=== PATIENT | female | born 1985 | race Two or more races ===

== ENCOUNTER 2017-04-21 11:15 | Emergency (ER) | payer MEDICAID ==
[~2017-04-21] VITALS: Ht 165.1 cm; Wt 95.0 kg
[~2017-04-21 11:15] MED LIST: OXCA600T32; SERT-132 PO; VENTAER INH
[2017-04-21 11:18] VITALS: BP 153/81; PULSE 74; RESP 15; TEMP 98.3; O2SAT 100
[2017-04-21] MEDS ORDERED: SODIUM CHLORIDE 0.9% FLUSH 5 ML FLUSH IV FLUSH PRN (11:30)
[2017-04-21 11:36] VITALS: O2SAT 100
--- NOTE | 2017-04-21 11:36 | PD ---
HPI Chief Complaint: Neuro Symptoms/ Deficits Time Seen by Provider: 11:22 Travel History International Travel<30 days: No Contact w/Intl Traveler<30days: No Traveled to known affect area: No History of Present Illness HPI Patient is a 32-year-old female with history of HTN, migraine headache and reported possible narcolepsy here for altered mental status. She was sitting in a parking lot outside of work at the [employer] when she was found unresponsive. EMS was called and patient was GCS 3 with reported rapid eye movement and irregular labored breathing. No tremors or shaking seen throughout the extremities. Blood glucose was normal, vital signs unremarkable and in route patient's mental status improved. She is now awake and able to answer yes or no questions but has difficulty speaking, articulating words and cannot move the body entirely. Patient is able to relay that she has a history of similar episodes, happy in approximately 3-4 times per year. This is typical for her. She sees a neurologist. We were able to call her pharmacy and find out that she takes Trileptal and sertraline prescribed by Dr. Lomas of neurology. Per chart review patient has had previous ED visits for syncope with admission for workup and CT/CTA, MRI, EEG that have been unremarkable. No reported history of seizures. PFSH Past Medical History Hx Anticoagulant Therapy: No Asthma: Yes Blood Disorders: No Depression: Yes (SINCE POST 2008) Cancer: No Cardiovascular Problems: Yes (HTN and cholesterol) High Cholesterol: Yes Chemotherapy: No Chest Pain: No Cerebrovascular Accident: No Diabetes: No Diminished Hearing: No Endocrine: No Gastrointestinal Disorders: Yes Genitourinary: Yes (FREQUENT UTI) Headaches: Yes Hypertension: Yes Immune Disorder: No Musculoskeletal: No Neurologic: Yes (HEADACHES) Psychiatric: Yes (hx depression, now controlled w/ meds ) Reproductive: Yes Respiratory: Yes (asthma) Immunizations Current: Yes Migraines: Yes Radiation Therapy: No Seizures: Yes ?: Not : 2 Para: 2 Ovarian Cysts: Yes Past Surgical History Abdominal Surgery: Yes (C SECTION 01/16) Cardiac Surgery: No Section: Yes (X 2) Ear Surgery: No Endocrine Surgery: No Eye Surgery: No Genitourinary Surgery: No Gynecologic Surgery: Yes (ENDOMETRIOSIS REMOVED 11/2009) Oral Surgery: Yes (TEETH EXTRACTED) Other Surgery: Yes ( C SECTION 01/16) Social History Alcohol Use: No Tobacco Use: No Substance Use: No Allergies-Medications (Allergen,Severity, Reaction): Coded Allergies: Clindamycin (Verified Allergy, Severe, Anaphylaxis, 04/21/17) Doxycycline (Verified Allergy, Severe, Anaphylaxis, 04/21/17) Levaquin (Verified Allergy, Severe, ORBITAL SWELLING, GENERAL ITCHING, FACIAL REDNESS., 04/21/17) Macrobid (Verified Allergy, Severe, Anaphylaxis, 04/21/17) Reported Meds & Prescriptions Reported Meds & Active Scripts Active Sertraline (Sertraline HCl) 50 Mg Tab 50 Mg PO DAILY Reported Oxtellar Xr (Oxcarbazepine) 600 Mg Tab DAILY Ventolin Hfa 18 GM Inh (Albuterol Sulfate) 90 Mcg/Act Aer 1 Puff INH Q4H PRN Review of Systems Except as stated in HPI: all other systems reviewed are Neg Physical Exam Narrative GENERAL: Well-appearing female in no acute distress SKIN: Focused skin assessment warm/dry. HEAD: Atraumatic. Normocephalic. EYES: Pupils equal and round. 3 mm. No afferent pupillary defect. No scleral icterus. No injection or drainage. ENT: No nasal bleeding or discharge. Mucous membranes pink and moist. NECK: Supple CARDIOVASCULAR: Regular rate and rhythm. No murmur appreciated. RESPIRATORY: No accessory muscle use. Clear to auscultation. Breath sounds equal bilaterally. GASTROINTESTINAL: Abdomen soft, non-tender, nondistended. MUSCULOSKELETAL: No obvious deformities. No edema. NEUROLOGICAL: Awake and alert. Answers basic yes or no questions but is unable to speak, speech is somewhat garbled/stuttering. No obvious cranial nerve deficits. Patient is unable to move the extremities. PSYCHIATRIC: Slightly anxious Data Data Last Documented VS Vital Signs Date Time Temp Pulse Resp B/P Pulse Ox O2 Delivery O2 Flow Rate FiO2 04/21/17 11:36 100 04/21/17 11:18 98.3 74 15 153/81 Orders Electrocardiogram (04/21/17 11:22) Basic Metabolic Panel (Bmp) (04/21/17 11:22) Complete Blood Count With Diff (04/21/17 11:22) Creatine Kinase (Cpk) (04/21/17 11:22) Ct Brain W/O Iv Contrast(Rout) (04/21/17 11:22) Ecg Monitoring (04/21/17 11:22) Iv Access Insert/Monitor (04/21/17 11:22) Oximetry (04/21/17 11:22) Sodium Chloride 0.9% Flush (Ns Flush) (04/21/17 11:30) Lorazepam Inj (Ativan Inj) (04/21/17 11:45) Labs Laboratory Tests Test 04/21/17 11:25 White Blood Count 10.8 TH/MM3 Red Blood Count 4.45 MIL/MM3 Hemoglobin 11.4 GM/DL Hematocrit 34.6 % Mean Corpuscular Volume 77.9 FL Mean Corpuscular Hemoglobin 25.7 PG Mean Corpuscular Hemoglobin 33.0 % Concent Red Cell Distribution Width 15.7 % Platelet Count 337 TH/MM3 Mean Platelet Volume 9.2 FL Neutrophils (%) (Auto) 59.1 % Lymphocytes (%) (Auto) 33.0 % Monocytes (%) (Auto) 4.0 % Eosinophils (%) (Auto) 2.4 % Basophils (%) (Auto) 1.5 % Neutrophils # (Auto) 6.3 TH/MM3 Lymphocytes # (Auto) 3.6 TH/MM3 Monocytes # (Auto) 0.4 TH/MM3 Eosinophils # (Auto) 0.3 TH/MM3 Basophils # (Auto) 0.2 TH/MM3 CBC Comment DIFF FINAL Differential Comment Sodium Level 139 MEQ/L Potassium Level 3.9 MEQ/L Chloride Level 107 MEQ/L Carbon Dioxide Level 22.1 MEQ/L Anion Gap 10 MEQ/L Blood Urea Nitrogen 14 MG/DL Creatinine 0.72 MG/DL Estimat Glomerular Filtration 93 ML/MIN Rate Random Glucose 93 MG/DL Calcium Level 8.8 MG/DL Total Creatine Kinase 75 U/L MDM Medical Decision Making Medical Screen Exam Complete: Yes Emergency Medical Condition: Yes Medical Record Reviewed: Yes Differential Diagnosis 32-year-old female with history of HTN, migraine headache and possible narcolepsy versus cataplexy here with altered mental status. Differential includes seizure, syncope, dehydration, electrolyte abnormality, arrhythmia, pseudoseizure, psychosocial stressors, cataplexy, narcolepsy. Narrative Course Patient placed on monitor, IV established and blood obtained. A twelve-lead EKG shows sinus rhythm without notable ST or T-wave abnormalities and normal intervals. [id number] arrives and states that patient has a history of "cataplexy" and sees Dr. Lomsa. She typically only has episodes like this when she is under significant psychosocial stressors. Apparently patient's mother is admitted for TIA versus CVA and patient has been appropriately worried about her mother. While in the emergency Department patient had a second spell where she became unresponsive and has rapid eye movement and fluttering. There is no eye deviation. Again thereafter she is aphasic with garbled speech and feels paralyzed unable to move the extremities. This gradually does improve with time. CBC, BMP, CPK and CT of the brain were unremarkable. I spoke with Dr. Lomas, who agrees that she has had workup for this in the past and that this is consistent with cataplexy and does not warrant any further workup in the emergency department and is okay with disposition to home as long as patient's mental status and exam normalized. Diagnosis Primary Impression: Cataplexy Referrals: Neurologist call for appointment Additional Instructions: Continue home medications. Call Dr. Lomas for outpatient follow-up. Med/Other Pt SpecificInfo: No Change to Meds Disposition: 01 DISCHARGE HOME Condition: Stable Kaley Landry MD Apr 21, 2017 11:36
[2017-04-21 11:40] LABS: AUTOMATED NEUTROPHIL # 6.3 TH/MM3 (1.8-7.7); BASOPHIL # 0.2 TH/MM3 (0-0.2); BASOPHIL % 1.5 % (0.0-2.0); EOSINOPHIL # 0.3 TH/MM3 (0-0.4); EOSINOPHIL % 2.4 % (0.0-4.0); HEMATOCRIT 34.6 % (35.0-46.0); HEMO FLAGS DIFF FINAL; LYMPHOCYTE # 3.6 TH/MM3 (1.0-4.8); MEAN CELL VOLUME 77.9 FL (80.0-100.0); MEAN CORPUSCULAR HEMOGLOBIN 25.7 PG (27.0-34.0); NEUT % 59.1 % (16.0-70.0); PLATELET COUNT 337 TH/MM3 (150-450); RED BLOOD COUNT 4.45 MIL/MM3 (4.00-5.30); RED CELL DISTRIBUTION WIDTH 15.7 % (11.6-17.2); WHITE BLOOD COUNT 10.8 TH/MM3 (4.0-11.0)
[2017-04-21 11:43] LABS: POTASSIUM 3.9 MEQ/L (3.5-5.1)
[2017-04-21] MEDS ORDERED: LORazepam 2 MG/ML VIAL IV PUSH ONE (11:45)
[2017-04-21 11:46] LABS: BICARBONATE 22.1 MEQ/L (21.0-32.0)
--- NOTE | 2017-04-21 12:18 | RADHPO ---
EXAM DATE/TIME: 04/21/2017 11:59 [facility] COMPARISON: CT FOOT RIGHT W CONTRAST, February 23, 2016, 15:51. INDICATIONS : Episode of altered mental status. Syncope. RADIATION DOSE: 63.52 CTDIvol (mGy) MEDICAL HISTORY : Hypertension. SURGICAL HISTORY : section. ENCOUNTER: Initial ACUITY: 1 day PAIN SCALE: 0/10 LOCATION: cranial TECHNIQUE: Multiple contiguous axial images were obtained of the head. Using automated exposure control and adj ustment of the mA and/or kV according to patient size, radiation dose was kept as low as reasonably a chievable to obtain optimal diagnostic quality images. FINDINGS: CEREBRUM: The ventricles are normal for age. No evidence of midline shift, mass lesion, hemorrhage or acute in farction. No extra-axial fluid collections are seen. POSTERIOR FOSSA: The cerebellum and brainstem are intact. The 4th ventricle is midline. The cerebellopontine angle i s unremarkable. EXTRACRANIAL: The visualized portion of the orbits is intact. SKULL: The calvaria is intact. No evidence of skull fracture. CONCLUSION: 1. No acute intercranial abnormality identified. Sameer Cobb MD on April 21, 2017 at 12:15 Board Certified Radiologist. This report was verified electronically.
[2017-04-21 12:47] VITALS: BP 149/76
--- NOTE | 2017-04-21 13:38 | EKG ---
Date Performed: 04/21/2017 Time Performed: 11:17:35 PTAGE: 32 years EKG: Sinus rhythm NORMAL ECG INTERPRETATION BASED ON A DEFAULT AGE OF 38 YEARS NO PREVIOUS TRACING DOCTOR: Gibson Domingo Interpretating Date/Time 04/21/2017 13:37:15
== END 2017-04-21 12:53 | disposition home or self-care (01) ==
LOC: PHED 11:15
DX: G47.411 Narcolepsy with cataplexy (principal); I10 Essential (primary) hypertension; J45.909 Unspecified asthma, uncomplicated; E78.00 Pure hypercholesterolemia, unspecified
CPT/HCPCS: 70450; 80048; 82550; 85025; 93005; 96374; 99285; J2060

== ENCOUNTER 2017-04-26 16:10 | Emergency (ER) | payer MEDICAID ==
[~2017-04-26] VITALS: Ht 167.6 cm; Wt 96.0 kg
[2017-04-26 16:16] VITALS: BP 133/85; PULSE 77; RESP 16; TEMP 98.6; O2SAT 98
[2017-04-26 16:49] VITALS: BP_SYST 146; BP_DIAS 73; BP_DIAS 87; RESP 16
--- NOTE | 2017-04-26 16:50 | PD ---
HPI Chief Complaint: Headache Time Seen by Provider: 16:21 Travel History International Travel<30 days: No Contact w/Intl Traveler<30days: No Traveled to known affect area: No History of Present Illness HPI PATIENT WAS JUST HERE ON APRIL 21 HAD AN EXTENSIVE WORKUP INCLUDING LABS AND CT HEAD ALL OF WHICH WAS UNREMARKABLE. TODAY PATIENT RETURNS WITH SLIGHT HEADACHE AND EPISODES OF HER CATAPLEXY. SHE HAS CONTACTED HER NEUROLOGIST FOR FURTHER CARE. PATIENT WAS ASKED WHAT SHE WOULD LIKE TO HAVE DONE TODAY BECAUSE HER WORKUP HAS INCLUDED MRI , EEG AND NEUROLOGIST EVALUATION...PT HONESTLY SAID "I DON'T KNOW, I JUST WISH I COULD BE CURED". PATIENT DENIES VISUAL CHANGES, DENIES N/V/FEVER EITHER PFSH Past Medical History Hx Anticoagulant Therapy: No Asthma: Yes Blood Disorders: No Depression: Yes (SINCE POST 2008) Cancer: No Cardiovascular Problems: Yes (HTN and cholesterol) High Cholesterol: Yes Chemotherapy: No Chest Pain: No Cerebrovascular Accident: No Diabetes: No Diminished Hearing: No Endocrine: No Gastrointestinal Disorders: Yes Genitourinary: Yes (FREQUENT UTI) Headaches: Yes Hypertension: Yes Immune Disorder: No Implanted Vascular Access Dvce: No Musculoskeletal: No Neurologic: Yes (CATAPLEXIA) Psychiatric: Yes (hx depression, now controlled w/ meds ) Reproductive: Yes Respiratory: Yes (asthma) Immunizations Current: Yes Migraines: Yes Radiation Therapy: No Seizures: Yes Influenza Vaccination: No ?: Not LMP: 03/24/17 : 2 Para: 2 Ovarian Cysts: Yes Tubal Ligation: Yes Past Surgical History Abdominal Surgery: Yes (C SECTION 01/16) Cardiac Surgery: No Section: Yes (X 2) Ear Surgery: No Endocrine Surgery: No Eye Surgery: No Genitourinary Surgery: No Gynecologic Surgery: Yes (ENDOMETRIOSIS REMOVED 11/2009) Neurologic Surgery: No Oral Surgery: Yes (TEETH EXTRACTED) Other Surgery: Yes ( C SECTION 01/16) Social History Alcohol Use: No Tobacco Use: No Substance Use: No Allergies-Medications (Allergen,Severity, Reaction): Coded Allergies: Clindamycin (Verified Allergy, Severe, Anaphylaxis, 04/21/17) Doxycycline (Verified Allergy, Severe, Anaphylaxis, 04/21/17) Levaquin (Verified Allergy, Severe, ORBITAL SWELLING, GENERAL ITCHING, FACIAL REDNESS., 04/21/17) Macrobid (Verified Allergy, Severe, Anaphylaxis, 04/21/17) Reported Meds & Prescriptions Reported Meds & Active Scripts Active Sertraline (Sertraline HCl) 50 Mg Tab 50 Mg PO DAILY Reported Oxtellar Xr (Oxcarbazepine) 600 Mg Tab DAILY Ventolin Hfa 18 GM Inh (Albuterol Sulfate) 90 Mcg/Act Aer 1 Puff INH Q4H PRN Review of Systems Except as stated in HPI: all other systems reviewed are Neg Physical Exam Narrative GENERAL: SKIN: Warm and dry. HEAD: Atraumatic. Normocephalic. EYES: Pupils equal and round. No scleral icterus. No injection or drainage. ENT: No nasal bleeding or discharge. Mucous membranes pink and moist. NECK: Trachea midline. No JVD. CARDIOVASCULAR: Regular rate and rhythm. RESPIRATORY: No accessory muscle use. Clear to auscultation. Breath sounds equal bilaterally. GASTROINTESTINAL: Abdomen soft, non-tender, nondistended. Hepatic and splenic margins not palpable. MUSCULOSKELETAL: Extremities without clubbing, cyanosis, or edema. No obvious deformities. NEUROLOGICAL: Awake and alert. No obvious cranial nerve deficits. Motor grossly within normal limits. Five out of 5 muscle strength in the arms and legs. Normal speech. PSYCHIATRIC: Appropriate mood and affect; insight and judgment normal. Data Data Last Documented VS Vital Signs Date Time Temp Pulse Resp B/P Pulse Ox O2 Delivery O2 Flow Rate FiO2 04/26/17 16:16 98.6 77 16 133/85 98 Room Air Orders Blood Glucose (04/26/17 16:42) Orthostatic Vital Signs (04/26/17 16:42) MDM Medical Decision Making Medical Screen Exam Complete: Yes Emergency Medical Condition: Yes Medical Record Reviewed: Yes Differential Diagnosis CATAPLEXY V MALINGERING Narrative Course PATIENT IS HEMODYNAMICALLY STABLE, ACCUCHECK WNL, ORTHOSTATIC NEGATIVE, WILL D/ C HOME Diagnosis Primary Impression: Cataplexy Disposition: 01 DISCHARGE HOME Condition: Stable Johnny Leija MD Apr 26, 2017 16:50
[2017-04-26 17:13] VITALS: BP 142/74; PULSE 80; RESP 16; O2SAT 100
== END 2017-04-26 17:30 | disposition home or self-care (01) ==
LOC: PHED 16:10
DX: G47.411 Narcolepsy with cataplexy (principal); I10 Essential (primary) hypertension; E78.00 Pure hypercholesterolemia, unspecified
CPT/HCPCS: 99282

== ENCOUNTER 2018-11-11 13:13 | Inpatient (IN) ==
[2018-11-11 20:05] LABS: Baso # (Auto) 0.1 th/mm3 (0.0-0.2); Baso % (Auto) 0.9 % (0.0-2.0); Eos # (Auto) 0.2 th/mm3 (0.0-0.4); Eos % (Auto) 1.4 % (0.0-4.0); Hematocrit 37.6 % (35.0-46.0); Hemoglobin 12.2 gm/dL (11.6-15.3); Lymph # (Auto) 2.9 th/mm3 (1.0-4.8); Mean Corpuscular HGB Conc 32.6 % (32.0-36.0); Mean Corpuscular Volume 79.8 fL (80.0-100.0); Mean Platelet Volume 8.2 fL (7.0-11.0); Mono # (Auto) 0.3 th/mm3 (0.0-0.9); Mono % (Auto) 2.8 % (0.0-8.0); Neut # (Auto) 8.5 th/mm3 (1.8-7.7); Neut % (Auto) 70.9 % (16.0-70.0); Platelet Count 400 th/mm3 (150-450); Red Blood Count 4.71 mil/mm3 (4.00-5.30); Red Cell Distribution Width 15.4 % (11.6-17.2)
[2018-11-11 20:11] LABS: Bacteria,Urine Rare /hpf; Bilirubin,Urine Negative (Negative); Calcium Oxalate Crystals,Urine Occasional /hpf; Clarity,Urine Clear (Clear); Color,Urine Yellow (Yellw/Straw); Glucose,Urine (UA) Negative (Negative); Leukocyte Esterase,Urine Negative (Negative); Mucus,Urine Few /lpf (Occasional); Nitrite,Urine Negative (Negative); Squamous Epithelial Cell,Urine 1 /hpf (0-5)
[2018-11-11 20:14] LABS: Amphetamine Screen,Urine Neg (Neg); Barbiturate Screen,Urine Neg (Neg); Cannabinoid Screen,Urine Neg (Neg); Cocaine Screen,Urine Neg (Neg)
[2018-11-11 20:31] LABS: Opiate Screen,Urine Neg (Neg)
[2018-11-11 20:32] LABS: Albumin 3.6 g/dL (3.4-5.0); Anion Gap 9 meq/L (5-15); Aspartate Aminotransferase 9 U/L (15-37); Blood Urea Nitrogen 13 mg/dL (7-18); Calcium 8.8 mg/dL (8.5-10.1); Carbon Dioxide 22.4 meq/L (21.0-32.0); Chloride 106 meq/L (98-107); Glomerular Filtration Rate 80 mL/min (>89); Glucose,Random 141 mg/dL (74-106); Magnesium 1.9 mg/dL (1.5-2.5); Potassium 3.5 meq/L (3.5-5.1); Sodium 137 meq/L (136-145)
--- NOTE | 2018-11-11 20:33 | ED ---
HPI General Chief Complaint: Psychiatric Symptoms Stated Complaint: psych eval Time Seen by Provider: 11/11/18 19:20 Source: patient Mode of arrival: ambulatory Limitations: no limitations History of Present Illness HPI Narrative: This is a 33-year-old white female who presents emergency department on a voluntary basis requesting evaluation of depression. She states that she has been increasingly depressed over the past month. She has thought about suicide but has no current plan. She denies any homicidal ideation. She states that she has been unemployed now for approximately 6 months. She is having financial problems at home. She has been having medical issues with cataplexy. She states that she has been under the care of a neurologist who has not been able to help her at this time. She allegedly has been referred to a specialist on the of this month. She denies any acute medical problems at this time. She states that she has been taking her medications. She denies any drugs or alcohol. Past medical history: Cataplexy Surgical history: Denies Social history: Denies alcohol and tobacco. No drugs. Related Data Home Medications Medication Instructions Recorded Confirmed clonazepam 1 mg PO HS 11/11/18 11/11/18 ferrous gluconate 270 mg PO DAILY 11/11/18 11/11/18 methocarbamol 500 mg PO TID PRN 11/11/18 11/11/18 norgestrel-ethinyl estradiol 1 tab PO DAILY 11/11/18 11/11/18 [Low-Ogestrel (28)] oxcarbazepine [Oxtellar XR] 1,200 mg PO DAILY 11/11/18 11/11/18 Allergies Allergy/AdvReac Type Severity Reaction Status Date / Time clindamycin Allergy Severe Anaphylaxis Unverified 11/11/18 13:24 doxycycline Allergy Severe Anaphylaxis Unverified 11/11/18 13:24 levofloxacin Allergy Severe ORBITAL Unverified 11/11/18 13:24 SWELLING, GENERAL ITCHING, FACIAL REDNESS. nitrofurantoin Allergy Severe Anaphylaxis Unverified 11/11/18 13:24 Review of Systems ROS: all other systems reviewed are negative [facility] Medical History Medical History Depression (Acute) Social History Social History Recent Travel in [facility] within the Last 8 Weeks: No Recent Out of Country Travel within the Last 8 Weeks: No Exam Narrative Exam Narrative: GENERAL: Well-nourished, well-developed patient. SKIN: Warm and dry. HEAD: Normocephalic and atraumatic. EYES: No scleral icterus. No injection or drainage. ENT: No nasal drainage noted. Mucous membranes pink. Airway patent. NECK: Supple, trachea midline. Moves head freely without obvious discomfort. CARDIOVASCULAR: Regular rate and rhythm without murmurs, gallops, or rubs. RESPIRATORY: Breath sounds equal bilaterally. No accessory muscle use. GASTROINTESTINAL: Abdomen soft, non-tender, nondistended. EXTREMITIES: No cyanosis or edema. BACK: Nontender without obvious deformity. No CVA tenderness. NEURO: Patient is alert and oriented. no sensorimotor deficits. Nonfocal. Normal speech. PSYCH: No delusions. No auditory or visual hallucinations. Course Initial Documented Vital Signs Temperature 99.3 F 11/11/18 13:21 Pulse Rate 99 H 11/11/18 13:21 Respiratory Rate 18 11/11/18 13:21 Blood Pressure 119/119 H 11/11/18 13:21 Pulse Oximetry 98 11/11/18 13:21 Last Documented Vital Signs Temperature 99.3 F 11/11/18 19:28 Pulse Rate 104 H 11/11/18 19:28 Respiratory Rate 15 11/11/18 19:28 Blood Pressure 140/88 11/11/18 19:28 Pulse Oximetry 99 11/11/18 19:28 Medical Decision Making MDM Narrative Medical decision making narrative: We will perform routine laboratory testing for medical clearance Medical Screen Exam Complete: Yes Emergency Medical Condition: Yes Differential Diagnosis Differential Diagnosis: MDM: High Differential diagnoses: Schizophrenia, schizoaffective disorder, bipolar, anxiety, depression, adjustment reaction, mood disorder NOS, ODD, depressive disorder NOS, substance induced mood disorder, infection,electrolyte abnormality, malingering. Mental health screening discussed with the patient. Psychiatric screen ordered. Lab Data Result diagrams: 11/11/18 19:45 11/11/18 19:45 POC Results POC Urine Results Negative Lab Results 11/11/18 11/11/18 11/11/18 Range/Units 19:40 19:40 19:45 WBC 12.0 H (4.0-11.0) th/mm3 RBC 4.71 (4.00-5.30) mil/mm3 Hgb 12.2 (11.6-15.3) gm/dL Hct 37.6 (35.0-46.0) % MCV 79.8 L (80.0-100.0) fL MCH 26.0 L (27.0-34.0) pg MCHC 32.6 (32.0-36.0) % RDW 15.4 (11.6-17.2) % Plt Count 400 (150-450) th/mm3 MPV 8.2 (7.0-11.0) fL Neut % (Auto) 70.9 H (16.0-70.0) % Lymph % (Auto) 24.0 (9.0-44.0) % [place] % (Auto) 2.8 (0.0-8.0) % Eos % (Auto) 1.4 (0.0-4.0) % Baso % (Auto) 0.9 (0.0-2.0) % Neut # (Auto) 8.5 H (1.8-7.7) th/mm3 Lymph # (Auto) 2.9 (1.0-4.8) th/mm3 [place] # (Auto) 0.3 (0.0-0.9) th/mm3 Eos # (Auto) 0.2 (0.0-0.4) th/mm3 Baso # (Auto) 0.1 (0.0-0.2) th/mm3 WBC Differential . Differential Comment Auto diff final Sodium (136-145) meq/L Potassium (3.5-5.1) meq/L Chloride (98-107) meq/L Carbon Dioxide (21.0-32.0) meq/L Anion Gap (5-15) meq/L BUN (7-18) mg/dL Creatinine (0.50-1.00) mg/dL Estimated GFR (>89) mL/min Random Glucose (74-106) mg/dL Calcium (8.5-10.1) mg/dL Magnesium (1.5-2.5) mg/dL Total Bilirubin (0.2-1.0) mg/dL AST (15-37) U/L ALT (10-53) U/L Alkaline Phosphatase (45-117) U/L Total Protein (6.4-8.2) g/dL Albumin (3.4-5.0) g/dL TSH (0.358-3.740) uIU/mL Urine Color Yellow (Yellw/Straw) Urine Clarity Clear (Clear) Urine pH 6.0 (5.0-8.5) Ur Specific [place] 1.020 (1.002-1.035) Urine Protein 30 H (Neg-Trace) mg/dL Urine Glucose (UA) Negative (Negative) mg/dL Urine Ketones Negative (Negative) mg/dL Urine Occult Blood Negative (Negative) Urine Nitrate Negative (Negative) Urine Bilirubin Negative (Negative) Urine Urobilinogen Less than 2 (Less than 2) mg/dL Ur Leukocyte Esterase Negative (Negative) Urine RBC 3 (0-3) /hpf Urine WBC 5 (0-5) /hpf Ur Squamous Epith Cells 1 (0-5) /hpf Calcium Oxalate Crystal Occasional H (None) /hpf Urine Bacteria Rare H (None) /hpf Urine Mucus Few H (Occasional) /lpf Micro UA Comment Culture not ind Ur Microscopic Review Not Reportable Urine Culture Comments Culture not ind Urine Opiates Screen Neg (Neg) Ur Barbiturates Screen Neg (Neg) Ur Amphetamines Screen Neg (Neg) U Benzodiazepines Scrn Neg (Neg) Urine Cocaine Screen Neg (Neg) U Cannabinoids Screen Neg (Neg) Serum Alcohol (0-5) mg/dL 11/11/18 Range/Units 19:45 WBC (4.0-11.0) th/mm3 RBC (4.00-5.30) mil/mm3 Hgb (11.6-15.3) gm/dL Hct (35.0-46.0) % MCV (80.0-100.0) fL MCH (27.0-34.0) pg MCHC (32.0-36.0) % RDW (11.6-17.2) % Plt Count (150-450) th/mm3 MPV (7.0-11.0) fL Neut % (Auto) (16.0-70.0) % Lymph % (Auto) (9.0-44.0) % [place] % (Auto) (0.0-8.0) % Eos % (Auto) (0.0-4.0) % Baso % (Auto) (0.0-2.0) % Neut # (Auto) (1.8-7.7) th/mm3 Lymph # (Auto) (1.0-4.8) th/mm3 [place] # (Auto) (0.0-0.9) th/mm3 Eos # (Auto) (0.0-0.4) th/mm3 Baso # (Auto) (0.0-0.2) th/mm3 WBC Differential Differential Comment Sodium 137 (136-145) meq/L Potassium 3.5 (3.5-5.1) meq/L Chloride 106 (98-107) meq/L Carbon Dioxide 22.4 (21.0-32.0) meq/L Anion Gap 9 (5-15) meq/L BUN 13 (7-18) mg/dL Creatinine 0.81 (0.50-1.00) mg/dL Estimated GFR 80 L (>89) mL/min Random Glucose 141 H (74-106) mg/dL Calcium 8.8 (8.5-10.1) mg/dL Magnesium 1.9 (1.5-2.5) mg/dL Total Bilirubin 0.1 L (0.2-1.0) mg/dL AST 9 L (15-37) U/L ALT 18 (10-53) U/L Alkaline Phosphatase 97 (45-117) U/L Total Protein 8.2 (6.4-8.2) g/dL Albumin 3.6 (3.4-5.0) g/dL TSH 2.120 (0.358-3.740) uIU/mL Urine Color (Yellw/Straw) Urine Clarity (Clear) Urine pH (5.0-8.5) Ur Specific [place] (1.002-1.035) Urine Protein (Neg-Trace) mg/dL Urine Glucose (UA) (Negative) mg/dL Urine Ketones (Negative) mg/dL Urine Occult Blood (Negative) Urine Nitrate (Negative) Urine Bilirubin (Negative) Urine Urobilinogen (Less than 2) mg/dL Ur Leukocyte Esterase (Negative) Urine RBC (0-3) /hpf Urine WBC (0-5) /hpf Ur Squamous Epith Cells (0-5) /hpf Calcium Oxalate Crystal (None) /hpf Urine Bacteria (None) /hpf Urine Mucus (Occasional) /lpf Micro UA Comment Ur Microscopic Review Urine Culture Comments Urine Opiates Screen (Neg) Ur Barbiturates Screen (Neg) Ur Amphetamines Screen (Neg) U Benzodiazepines Scrn (Neg) Urine Cocaine Screen (Neg) U Cannabinoids Screen (Neg) Serum Alcohol Less than 3 (0-5) mg/dL Discharge Plan Discharge Disposition Patient Disposition: Sign Out(ED Internal Use Only) Discharge Condition Condition: Stable Discharge Details Anticipated Discharge Date: 11/12/18 Physicians Team ED Provider: Jose Raul Bo ED Midlevel Provider: Pérez Serrano Primary Care Provider: Radhika Arenas Rxs /Orders / Referrals /Forms Prescriptions: No Action norgestrel-ethinyl estradiol [Low-Ogestrel (28)] 0.3-30 mg-mcg Tablet 1 tab PO DAILY RF: 0 methocarbamol 500 mg Tablet 500 mg PO TID PRN (Reason: Pain) RF: 0 oxcarbazepine [Oxtellar XR] 600 mg Tablet Extended Release 24 Hr 1,200 mg PO DAILY RF: 0 ferrous gluconate 270 mg (27 mg iron) Tablet 270 mg PO DAILY RF: 0 clonazepam 1 mg Tablet 1 mg PO HS RF: 0 Discharge Interventions Interventions: Vital Signs Last Done: 11/11/18 19:28 Status ED Status: Medically Cleared
[2018-11-11 20:34] LABS: Alanine Aminotransferase 18 U/L (10-53)
[2018-11-11 20:43] LABS: Alkaline Phosphatase 97 U/L (45-117); Total Protein 8.2 g/dL (6.4-8.2)
[2018-11-11] MEDS ORDERED: Aluminum/Magnesium/Simethacone Susp 30 ML UDC PO PRN ×2 (21:33→23:52)
[2018-11-11] MEDS ORDERED: Acetaminophen 325 MG Tablet PO PRN (21:33)
[2018-11-11] MEDS: LORazepam 1 MG Tablet PO PRN (22:51)
[2018-11-11] MEDS ORDERED: LORazepam 0.5 MG Tablet PO PRN (23:52)
[2018-11-11] MEDS ORDERED: LORazepam 1 MG Tablet PO PRN (23:52)
[2018-11-12 07:38] LABS: Calcium 8.2 mg/dL (8.5-10.1); Carbon Dioxide 24.5 meq/L (21.0-32.0); Potassium 3.6 meq/L (3.5-5.1)
[2018-11-12 07:49] LABS: Chol/HDL Ratio 4.2 Ratio; Free T4 (Free Thyroxine) 0.8 ng/dL (0.76-1.46); HDL Cholesterol 50.2 mg/dL (40.0-60.0); Thyroid Stimulating Hormone 2.91 uIU/mL (0.358-3.740)
[2018-11-12] MEDS ORDERED: FERROUS GLUCONATE 270 MG PO SCH (09:00)
[2018-11-12] MEDS: Ferrous Sulfate 325 MG Tablet PO SCH (09:08)
[2018-11-12] MEDS: OXcarbazepine 600 MG Tablet PO SCH ×2 (09:08→20:54)
[2018-11-12] MEDS: Methocarbamol 500 MG Tablet PO SCH ×4 (09:08→18:16)
[2018-11-12 09:17] LABS: Hemoglobin A1c 5.9 % (4.3-6.0)
--- NOTE | 2018-11-12 12:41 | CT ---
EXAM DATE: 11/12/2018 12:32 PM EST AGE/SEX: 33 years / Female INDICATIONS: Stroke alert, altered mental status. CLINICAL DATA: This is the patient's initial encounter. Patient reports that signs and symptoms have been present for 1 day and indicates a pain score of Nonresponsive. MEDICAL/SURGICAL HISTORY: Non-responsive. Non-responsive. RADIATION DOSE: 43.25 CTDI (mGy) COMPARISON: [facility], CT BRAIN W/O CONTRAST, 04/21/2017. . TECHNIQUE: CT of the head without contrast. Using automated exposure control and adjustment of the mA and/or kV according to patient size, radiation dose was kept as low as reasonably achievable to ob tain optimal diagnostic quality images. DICOM format image data is available electronically for revi ew and comparison. FINDINGS: Cerebrum: The ventricles are normal for age. No evidence of midline shift, mass lesion, hemorrhage or acute infarction. No extraaxial fluid collections are seen. Posterior Fossa: The cerebellum and brainstem are intact. The 4th ventricle is midline. The cerebe llopontine angle is unremarkable. Extracranial: The visualized portion of the orbits is intact. Skull: The calvaria is intact. No evidence of skull fracture. CONCLUSION: 1. No acute intracranial abnormality identified. Report was called by [ Dr. Suárez] at 12:38 PM. Electronically signed by: Sameer Cobb MD Board Certified Radiologist 11/12/2018 12:39 PM EST
[2018-11-12 12:45] LABS: Baso # (Auto) 0.1 th/mm3 (0.0-0.2); Baso % (Auto) 0.6 % (0.0-2.0); Eos # (Auto) 0.1 th/mm3 (0.0-0.4); Eos % (Auto) 1.3 % (0.0-4.0); Hematocrit 36.6 % (35.0-46.0); Lymph # (Auto) 2.2 th/mm3 (1.0-4.8); Lymph % (Auto) 23.4 % (9.0-44.0); Mean Corpuscular HGB Conc 32.7 % (32.0-36.0); Mean Corpuscular Hemoglobin 26.4 pg (27.0-34.0); Mean Corpuscular Volume 80.8 fL (80.0-100.0); Mean Platelet Volume 8.2 fL (7.0-11.0); Mono # (Auto) 0.2 th/mm3 (0.0-0.9); Mono % (Auto) 2.2 % (0.0-8.0); Neut # (Auto) 6.8 th/mm3 (1.8-7.7); Neut % (Auto) 72.5 % (16.0-70.0); Platelet Count 366 th/mm3 (150-450); Red Blood Count 4.53 mil/mm3 (4.00-5.30); Red Cell Distribution Width 15.7 % (11.6-17.2); White Blood Count 9.4 th/mm3 (4.0-11.0)
[2018-11-12 12:59] LABS: Activated Partial Thrombo Time 33.1 sec (23.4-31.7); Prothrombin Time 10.1 sec (9.8-11.6)
[2018-11-12 13:10] LABS: Creatine Kinase 36 U/L (26-192)
--- NOTE | 2018-11-12 13:11 | P.HPPSY ---
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 Express and informed consent means consent voluntarily given in writing, by a competent person, after sufficient explanation and disclosure of the subject matter involved to enable the person to make a knowing and willful decision without any element of force, fraud, deceit, duress, or other form of constraint or coercion. This person is 18 years of age or older, is not now known to be incompetent to consent to treatment with a guardian advocate, and does not have a health care surrogate or proxy currently making medical treatment decisions. I have found this person to be one of the following: [] Competent to provide express and informed consent, as defined above, for voluntary admission to this facility and is competent to provide express and informed consent for treatment. He/she has the consistent capacity to make well reasoned, willful, and knowing decisions concerning his or her medical or mental health treatment. The person fully and consistently understands the purpose of the admission for examination/placement and is fully capable of personally exercising all rights [place] [] Incompetent to provide express and informed consent to voluntary admission, and this is incompetent to provide express and informed consent to treatment. The person must be transferred to involuntary status and a petition for a guardian advocate filed with the Circuit Court. [] Refusing to provide express and informed consent to voluntary admission but is competent to provide express and informed consent for treatment. The person must be discharged or transferred to involuntary status. Form shall be completed within 24 hours of a person's arrival at the receiving facility and filed in the clinical record of each person: 1. Admitted on a voluntary basis 2. Permitted to provide express and informed consent to his/her own treatment 3. Allowed to transfer from involuntary to voluntary status 4. Prior to permitting a person to consent to his or her own treatment after having been previously found incompetent to consent to treatment. History of Present Illness Capacity: Has capacity Chief Complaint: suicidal ideation and recurrent depression History of Present Illness: November 12, 2018 HPI: 33-year-old female admitted with depressed mood with some thoughts of suicide but without a plan. Patient says she came to the hospital because of her concern that she would further decompensate. The current depression has been increasing over the past couple of weeks. 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 Her extension service specialist in charge had problems and would not help. She had a fall and has initiated litigation blaming increased in the frequency of to her episodes of cataplexy. The patient states that her cataplexy symptoms have worsened since about the end of March of this year. Her depression had been responding to Zoloft but the Zoloft was discontinued in November because she felt she no longer needed it. Discontinuance of the Zoloft has never been considered related to the possibility of an increase in her cataplexy by her primary care physician or her neurologist. Patient's current medication has not been effective with an increase in the frequency to 3-4 times a day and for 5 days a week. She claims that this relates to her level of stress. Patient has experienced weight gain of over 50 pounds since she has been inactive by her injuries to her knee in a fall she blames on a slippery walk, not her cataplexy. Today the patient had an episode of catalepsy and the [facility] team responded for stroke alert. I came to see the patient and found her alert but confused and extremely anxious with jumbling of her words and picture similar to that seen in hyperventilation syndrome. CAT scan was ordered and patient taken to medical floor. Request for neurological consult. Family history: Both of the patient's parents have diabetes. The mother has major depressive disorder and the father suffers from sleep apnea. The patient does not know if she has had a sleep study. - Inpatient Certification I certify that the inpatient services were ordered in accordance with Medicare regulations governing the order. This includes certification that hospital inpatient services are reasonable and necessary and in the case of services not specified as inpatient-only under 42 CFR 419.22(n), that they are appropriately provided as inpatient services in accordance to with the 2-midnight benchmark under 43 CFR 412.3(e) I certify that inpatient psychiatric hospital services are medically necessary. Evaluation and treatment and/or diagnostic testing are expected to improve the patient's condition. The patient needs on a daily basis, active treatment furnished directly by or requiring the supervision of inpatient psychiatric facility personnel. Estimated Total Length of Stay (Days): 5 Plans for Post Hospital Care: Not yet determined Review of Systems cataplexy. Neurologic: Reports frequent falls Psychiatric: Reports abnormal sleep pattern, Reports anxiety, Reports mood swings, Reports thoughts of hurting/killing yourself [facility] - History History Provided By: Patient, Medical Record - Medical History Medical History: Medical History (Last Reviewed 11/11/18 @ 20:32 by THIERRY Connolly) Depression - Tobacco History Second Hand Smoke Exposure: No Tobacco Use In Past 30 Days: No Smoking Status: Never smoker Tobacco Type: Cigarettes, Pipe, Cigars, E-Cigarettes, Smokeless Tobacco - Alcohol History How Often Do You Have a Drink Containing Alcohol: Never - Substance Use History Substance History: No History of Abuse - Travel History Recent Travel in the [place] Within the Last 8 Weeks: No Recent Travel Out of the Country Within the Last 8 Weeks: No - Immunization History Tetanus Immunization: Unsure Hx Influenza Vaccine This Season: No Medications and Allergies Active Medications: Active Medications Acetaminophen (Tylenol) 650 mg PO Q4H PRN PRN Reason: Pain 1-5 or Temp >101F Al Hydrox/Mg Hydrox/Simethicone (Mag-Al Plus Susp Liq) 30 ml PO Q6H PRN PRN Reason: DYSPEPSIA Al Hydroxide/Mg Hydroxide (Milk Of Magnesia Liq) 30 ml PO DAILY PRN PRN Reason: CONSTIPATION Diphenhydramine HCl (Benadryl) 50 mg PO Q6H PRN PRN Reason: For mild anxiety and/or EPS Last Admin: 11/11/18 22:52 Dose: 50 mg Diphenhydramine HCl (Benadryl) 50 mg PO HS PRN PRN Reason: INSOMNIA Diphenhydramine HCl (Benadryl Inj) 50 mg IM Q6H PRN PRN Reason: For mild anxiety and/or EPS Diphenhydramine HCl (Benadryl Inj) 50 mg IM HS PRN PRN Reason: INSOMNIA Ferrous Sulfate (Ferosul) 325 mg PO DAILY ALICE Last Admin: 11/12/18 09:08 Dose: 325 mg Lorazepam (Ativan) 1 mg PO Q6H PRN PRN Reason: MODERATE TO SEVERE ANXIETY Last Admin: 11/11/18 22:51 Dose: 1 mg Lorazepam (Ativan Inj) 1 mg IM Q6H PRN PRN Reason: MODERATE TO SEVERE ANXIETY Methocarbamol (Robaxin) 500 mg PO TID [facility] Last Admin: 11/12/18 09:14 Dose: Not Given Nicotine (Habitrol 21 Mg Patch.24 Hr) 1 patch T-DERMAL DAILY [facility] Last Admin: 11/12/18 09:08 Dose: 1 patch Oxcarbazepine (Trileptal) 600 mg PO BID [facility] Last Admin: 11/12/18 09:08 Dose: 600 mg Patch Removal (Remove Old Patch) 1 each T-DERMAL HS ONE Stop: 11/12/18 21:01 Patient Own Medication Low- Ogestrel Tablets 28 (Norgestrel-Ethinyl Estradiol) 0 each PO HS [facility] Allergies Allergy/AdvReac Type Severity Reaction Status Date / Time clindamycin Allergy Severe Anaphylaxis Unverified 11/11/18 13:24 doxycycline Allergy Severe Anaphylaxis Unverified 11/11/18 13:24 levofloxacin Allergy Severe ORBITAL Unverified 11/11/18 13:24 SWELLING, GENERAL ITCHING, FACIAL REDNESS. nitrofurantoin Allergy Severe Anaphylaxis Unverified 11/11/18 13:24 Home Medications Medication Instructions Recorded Confirmed Type clonazepam 1 mg PO HS 11/11/18 11/11/18 History ferrous gluconate 270 mg PO DAILY 11/11/18 11/11/18 History methocarbamol 500 mg PO TID PRN 11/11/18 11/11/18 History norgestrel-ethinyl estradiol 1 tab PO DAILY 11/11/18 11/11/18 History [Low-Ogestrel (28)] oxcarbazepine [Oxtellar XR] 1,200 mg PO DAILY 11/11/18 11/11/18 History Results - Labs CBC & Chem 7: 11/12/18 12:25 11/12/18 05:57 Labs: Laboratory Results - last 24 hr 11/11/18 11/11/18 11/11/18 19:40 19:40 19:45 WBC 12.0 H RBC 4.71 Hgb 12.2 POC Hgb (Calc) Hct 37.6 POC Hct MCV 79.8 L MCH 26.0 L MCHC 32.6 RDW 15.4 Plt Count 400 MPV 8.2 Neut % (Auto) 70.9 H Lymph % (Auto) 24.0 Ellis % (Auto) 2.8 Eos % (Auto) 1.4 Baso % (Auto) 0.9 Neut # (Auto) 8.5 H Lymph # (Auto) 2.9 Ellis # (Auto) 0.3 Eos # (Auto) 0.2 Baso # (Auto) 0.1 WBC Differential . Differential Comment Auto diff final POC Sodium Sodium POC Potassium Potassium POC Chloride Chloride Carbon Dioxide Anion Gap POC BUN BUN Creatinine POC Creatinine Estimated GFR POC Glucose Random Glucose Hemoglobin A1c Calcium Magnesium Total Bilirubin AST ALT Alkaline Phosphatase Total Protein Albumin Triglycerides Cholesterol LDL Cholesterol, Calc HDL Cholesterol Cholesterol/HDL Ratio TSH Free T4 Urine Color Yellow Urine Clarity Clear Urine pH 6.0 Ur Specific Danielson 1.020 Urine Protein 30 H Urine Glucose (UA) Negative Urine Ketones Negative Urine Occult Blood Negative Urine Nitrate Negative Urine Bilirubin Negative Urine Urobilinogen Less than 2 Ur Leukocyte Esterase Negative Urine RBC 3 Urine WBC 5 Ur Squamous Epith Cells 1 Calcium Oxalate Crystal Occasional H Urine Bacteria Rare H Urine Mucus Few H Micro UA Comment Culture not ind Ur Microscopic Review Not Reportable Urine Culture Comments Culture not ind Urine Opiates Screen Neg Ur Barbiturates Screen Neg Ur Amphetamines Screen Neg U Benzodiazepines Scrn Neg Urine Cocaine Screen Neg U Cannabinoids Screen Neg Serum Alcohol 11/11/18 11/12/18 11/12/18 19:45 05:57 05:57 WBC RBC Hgb POC Hgb (Calc) Hct POC Hct MCV MCH MCHC RDW Plt Count MPV Neut % (Auto) Lymph % (Auto) Ellis % (Auto) Eos % (Auto) Baso % (Auto) Neut # (Auto) Lymph # (Auto) Ellis # (Auto) Eos # (Auto) Baso # (Auto) WBC Differential Differential Comment POC Sodium Sodium 137 141 POC Potassium Potassium 3.5 3.6 POC Chloride Chloride 106 107 Carbon Dioxide 22.4 24.5 Anion Gap 9 10 POC BUN BUN 13 12 Creatinine 0.81 0.76 POC Creatinine Estimated GFR 80 L 87 L POC Glucose Random Glucose 141 H 97 Hemoglobin A1c 5.9 Calcium 8.8 8.2 L Magnesium 1.9 Total Bilirubin 0.1 L AST 9 L ALT 18 Alkaline Phosphatase 97 Total Protein 8.2 Albumin 3.6 Triglycerides 216 H Cholesterol 211 H LDL Cholesterol, Calc 118 H HDL Cholesterol 50.2 Cholesterol/HDL Ratio 4.20 TSH 2.120 2.910 Free T4 0.80 Urine Color Urine Clarity Urine pH Ur Specific Danielson Urine Protein Urine Glucose (UA) Urine Ketones Urine Occult Blood Urine Nitrate Urine Bilirubin Urine Urobilinogen Ur Leukocyte Esterase Urine RBC Urine WBC Ur Squamous Epith Cells Calcium Oxalate Crystal Urine Bacteria Urine Mucus Micro UA Comment Ur Microscopic Review Urine Culture Comments Urine Opiates Screen Ur Barbiturates Screen Ur Amphetamines Screen U Benzodiazepines Scrn Urine Cocaine Screen U Cannabinoids Screen Serum Alcohol Less than 3 11/12/18 11/12/18 12:25 12:25 WBC 9.4 RBC 4.53 Hgb 12.0 POC Hgb (Calc) 12.2 Hct 36.6 POC Hct 36.0 MCV 80.8 MCH 26.4 L MCHC 32.7 RDW 15.7 Plt Count 366 MPV 8.2 Neut % (Auto) 72.5 H Lymph % (Auto) 23.4 Ellis % (Auto) 2.2 Eos % (Auto) 1.3 Baso % (Auto) 0.6 Neut # (Auto) 6.8 Lymph # (Auto) 2.2 Ellis # (Auto) 0.2 Eos # (Auto) 0.1 Baso # (Auto) 0.1 WBC Differential . Differential Comment Auto diff final POC Sodium 139 Sodium POC Potassium 3.7 Potassium POC Chloride 105 Chloride Carbon Dioxide Anion Gap POC BUN 12 BUN Creatinine POC Creatinine 0.7 Estimated GFR POC Glucose 147 H Random Glucose Hemoglobin A1c Calcium Magnesium Total Bilirubin AST ALT Alkaline Phosphatase Total Protein Albumin Triglycerides Cholesterol LDL Cholesterol, Calc HDL Cholesterol Cholesterol/HDL Ratio TSH Free T4 Urine Color Urine Clarity Urine pH Ur Specific Danielson Urine Protein Urine Glucose (UA) Urine Ketones Urine Occult Blood Urine Nitrate Urine Bilirubin Urine Urobilinogen Ur Leukocyte Esterase Urine RBC Urine WBC Ur Squamous Epith Cells Calcium Oxalate Crystal Urine Bacteria Urine Mucus Micro UA Comment Ur Microscopic Review Urine Culture Comments Urine Opiates Screen Ur Barbiturates Screen Ur Amphetamines Screen U Benzodiazepines Scrn Urine Cocaine Screen U Cannabinoids Screen Serum Alcohol - Imaging Impressions Head CT 11/12/18 12:24 CONCLUSION: 1. No acute intracranial abnormality identified. Report was called by [ Dr. Suárez] at 12:38 PM. Exam Vital signs: Vital Signs 11/11/18 13:21 11/11/18 19:28 11/11/18 22:32 Temperature 99.3 F 99.3 F 98.7 F Pulse Rate 99 H 104 H 92 H Respiratory Rate 18 15 14 Blood Pressure 119/119 H 140/88 168/84 H Pulse Oximetry 98 99 99 11/11/18 22:50 11/12/18 05:28 11/12/18 12:46 Temperature 99.0 F 98.0 F 98.2 F Pulse Rate 95 H 75 82 Respiratory Rate 19 18 16 Blood Pressure 182/90 H 112/61 165/95 H Pulse Oximetry 96 98 96 Intake & Output 11/11/18 11/12/18 11/12/18 18:59 06:59 18:59 Weight 113.398 kg 112.3 kg Other: Weight On Admission 112.3 kg Mental Status Examination Appearance: Appropriate Consciousness: Alert Orientation: x4 Motor Activity: Normal gait Speech: Unremarkable Language: Adequate Fund of Knowledge: Adequate Attention and Concentration: Adequate Memory: Unremarkable Mood: Sad, Anxious Affect: Anxious Thought Process & Associations: Intact Thought Content: Appropriate Hallucination Type: None Suicidal Ideation: Yes Insight: Adequate Judgment: Adequate Assessment and Plan - Plan Plan: Estimated LOS: [] days November 12, 2018 Patient discharged today to the medical floor. Patient will be discharged from psychiatry and admitted to medical floor until she is deemed stable. Preference would be for the patient to be admitted to neurology since the patient would be safer there Justification for Continued Inpatient Stay: November 12, 2018 Patient to be discharged to the medical floor for workup prior to return to psychiatry. Preference would be for the patient to be admitted to neurology, since she would be safer there.
--- NOTE | 2018-11-12 14:48 | P.DSPSY ---
Psychiatry Discharge Summary Inpatient Psychiatric care?: Yes Advance Directives: No Mental Health Advance Directive: No Health Care Proxy: No - Admission Admission Date: November 11, 2018 22:13 Brief History: November 12, 2018 HPI: 33-year-old female admitted with depressed mood with some thoughts of suicide but without a plan. Patient says she came to the hospital because of her concern that she would further decompensate. The current depression is been increasing over the past couple of weeks. 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 She had a fall and has initiated litigation blaming increased in the frequency of to her episodes of catalepsy. The patient states that her catalepsy symptoms have worsened since about the end of March of this year. Her depression irby had been responding to Zoloft but the Zoloft was discontinued in November because she felt she no longer needed. Discontinuance has never been related to the possibility of an increase in her cataplexy by her primary care physician or her neurologist. Patient's current medication has not been effective with an increase in the frequency to 3-4 times a day and for 5 days a week. She claims that this relates to her level of stress. Patient is experience weight gain of over 50 pounds since she has been made in active by her injuries to her knee. Today the patient had an episode of catalepsy and the [facility] team responded for stroke alert. I came to see the patient and found her alert but confused and extremely anxious with jumbling of her words and picture similar to that seen in hyperventilation syndrome. CAT scan was ordered and patient taken to medical floor. Request for neurological consult. Family history: Both of the patient's parents have diabetes. The mother has major depressive disorder in the father suffers from sleep apnea. Tobacco Use In Past 30 Days: No How Often Do You Have a Drink Containing Alcohol: Never Hospital Course: November 12, 2018. 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 Status: Acute Discharge Disposition: Medical floor - Discharge Instructions Discharge Diet: Regular Diet Activities You Can Perform: Non Weight Bearing, Sitz Bath Activities to Avoid: Prolonged Standing (Without support patient has a high likelihood of falling) - Discharge Time > 30 minutes Mental Status Examination Appearance: Appropriate Consciousness: Alert Orientation: x4 Motor Activity: Normal gait Speech: Rapid, Other (Garbled speech) Language: Adequate Fund of Knowledge: Adequate Attention and Concentration: Adequate Memory: Unremarkable Mood: Sad, Anxious Affect: Anxious Thought Process & Associations: Intact Thought Content: Appropriate Hallucination Type: None Suicidal Ideation: Yes Insight: Adequate Judgment: Adequate (Patient renal status deteriorated with onset of cataplectic episode) Discharge/Advance Care Plan - Results Vital Signs: Last Vital Signs Temp 98.2 F 11/12/18 12:46 Pulse 82 11/12/18 12:46 Resp 16 11/12/18 12:46 BP 165/95 H 11/12/18 12:46 Pulse Ox 96 11/12/18 12:46 Lab Results: Abnormal Lab Results 11/11/18 11/11/18 11/11/18 19:40 19:40 19:45 WBC 12.0 H RBC 4.71 Hgb 12.2 POC Hgb (Calc) Hct 37.6 POC Hct MCV 79.8 L MCH 26.0 L MCHC 32.6 RDW 15.4 Plt Count 400 MPV 8.2 Neut % (Auto) 70.9 H Lymph % (Auto) 24.0 Simpson % (Auto) 2.8 Eos % (Auto) 1.4 Baso % (Auto) 0.9 Neut # (Auto) 8.5 H Lymph # (Auto) 2.9 Simpson # (Auto) 0.3 Eos # (Auto) 0.2 Baso # (Auto) 0.1 WBC Differential . Differential Comment Auto diff final PT INR APTT Fibrinogen POC Sodium Sodium POC Potassium Potassium POC Chloride Chloride Carbon Dioxide Anion Gap POC BUN BUN Creatinine POC Creatinine Estimated GFR POC Glucose Random Glucose Hemoglobin A1c Calcium Magnesium Total Bilirubin AST ALT Alkaline Phosphatase Total Creatine Kinase Troponin I Total Protein Albumin Triglycerides Cholesterol LDL Cholesterol, Calc HDL Cholesterol Cholesterol/HDL Ratio TSH Free T4 Urine Color Yellow Urine Clarity Clear Urine pH 6.0 Ur Specific [place] 1.020 Urine Protein 30 H Urine Glucose (UA) Negative Urine Ketones Negative Urine Occult Blood Negative Urine Nitrate Negative Urine Bilirubin Negative Urine Urobilinogen Less than 2 Ur Leukocyte Esterase Negative Urine RBC 3 Urine WBC 5 Ur Squamous Epith Cells 1 Calcium Oxalate Crystal Occasional H Urine Bacteria Rare H Urine Mucus Few H Micro UA Comment Culture not ind Ur Microscopic Review Not Reportable Urine Culture Comments Culture not ind Urine Opiates Screen Neg Ur Barbiturates Screen Neg Ur Amphetamines Screen Neg U Benzodiazepines Scrn Neg Urine Cocaine Screen Neg U Cannabinoids Screen Neg Serum Alcohol Blood Type Blood Type Recheck Antibody Screen 11/11/18 11/12/18 11/12/18 19:45 05:57 05:57 WBC RBC Hgb POC Hgb (Calc) Hct POC Hct MCV MCH MCHC RDW Plt Count MPV Neut % (Auto) Lymph % (Auto) Simpson % (Auto) Eos % (Auto) Baso % (Auto) Neut # (Auto) Lymph # (Auto) Simpson # (Auto) Eos # (Auto) Baso # (Auto) WBC Differential Differential Comment PT INR APTT Fibrinogen POC Sodium Sodium 137 141 POC Potassium Potassium 3.5 3.6 POC Chloride Chloride 106 107 Carbon Dioxide 22.4 24.5 Anion Gap 9 10 POC BUN BUN 13 12 Creatinine 0.81 0.76 POC Creatinine Estimated GFR 80 L 87 L POC Glucose Random Glucose 141 H 97 Hemoglobin A1c 5.9 Calcium 8.8 8.2 L Magnesium 1.9 Total Bilirubin 0.1 L AST 9 L ALT 18 Alkaline Phosphatase 97 Total Creatine Kinase Troponin I Total Protein 8.2 Albumin 3.6 Triglycerides 216 H Cholesterol 211 H LDL Cholesterol, Calc 118 H HDL Cholesterol 50.2 Cholesterol/HDL Ratio 4.20 TSH 2.120 2.910 Free T4 0.80 Urine Color Urine Clarity Urine pH Ur Specific [place] Urine Protein Urine Glucose (UA) Urine Ketones Urine Occult Blood Urine Nitrate Urine Bilirubin Urine Urobilinogen Ur Leukocyte Esterase Urine RBC Urine WBC Ur Squamous Epith Cells Calcium Oxalate Crystal Urine Bacteria Urine Mucus Micro UA Comment Ur Microscopic Review Urine Culture Comments Urine Opiates Screen Ur Barbiturates Screen Ur Amphetamines Screen U Benzodiazepines Scrn Urine Cocaine Screen U Cannabinoids Screen Serum Alcohol Less than 3 Blood Type Blood Type Recheck Antibody Screen 11/12/18 11/12/18 11/12/18 12:25 12:25 12:25 WBC 9.4 RBC 4.53 Hgb 12.0 POC Hgb (Calc) Hct 36.6 POC Hct MCV 80.8 MCH 26.4 L MCHC 32.7 RDW 15.7 Plt Count 366 MPV 8.2 Neut % (Auto) 72.5 H Lymph % (Auto) 23.4 Simpson % (Auto) 2.2 Eos % (Auto) 1.3 Baso % (Auto) 0.6 Neut # (Auto) 6.8 Lymph # (Auto) 2.2 Simpson # (Auto) 0.2 Eos # (Auto) 0.1 Baso # (Auto) 0.1 WBC Differential . Differential Comment Auto diff final PT 10.1 INR 1.0 APTT 33.1 H Fibrinogen 434 H POC Sodium Sodium POC Potassium Potassium POC Chloride Chloride Carbon Dioxide Anion Gap POC BUN BUN Creatinine POC Creatinine Estimated GFR POC Glucose Random Glucose Hemoglobin A1c Calcium Magnesium Total Bilirubin AST ALT Alkaline Phosphatase Total Creatine Kinase 36 Troponin I Less than 0.02 L Total Protein Albumin Triglycerides Cholesterol LDL Cholesterol, Calc HDL Cholesterol Cholesterol/HDL Ratio TSH Free T4 Urine Color Urine Clarity Urine pH Ur Specific [place] Urine Protein Urine Glucose (UA) Urine Ketones Urine Occult Blood Urine Nitrate Urine Bilirubin Urine Urobilinogen Ur Leukocyte Esterase Urine RBC Urine WBC Ur Squamous Epith Cells Calcium Oxalate Crystal Urine Bacteria Urine Mucus Micro UA Comment Ur Microscopic Review Urine Culture Comments Urine Opiates Screen Ur Barbiturates Screen Ur Amphetamines Screen U Benzodiazepines Scrn Urine Cocaine Screen U Cannabinoids Screen Serum Alcohol Blood Type Blood Type Recheck Antibody Screen 11/12/18 11/12/18 12:25 12:25 WBC RBC Hgb POC Hgb (Calc) 12.2 Hct POC Hct 36.0 MCV MCH MCHC RDW Plt Count MPV Neut % (Auto) Lymph % (Auto) Simpson % (Auto) Eos % (Auto) Baso % (Auto) Neut # (Auto) Lymph # (Auto) Simpson # (Auto) Eos # (Auto) Baso # (Auto) WBC Differential Differential Comment PT INR APTT Fibrinogen POC Sodium 139 Sodium POC Potassium 3.7 Potassium POC Chloride 105 Chloride Carbon Dioxide Anion Gap POC BUN 12 BUN Creatinine POC Creatinine 0.7 Estimated GFR POC Glucose 147 H Random Glucose Hemoglobin A1c Calcium Magnesium Total Bilirubin AST ALT Alkaline Phosphatase Total Creatine Kinase Troponin I Total Protein Albumin Triglycerides Cholesterol LDL Cholesterol, Calc HDL Cholesterol Cholesterol/HDL Ratio TSH Free T4 Urine Color Urine Clarity Urine pH Ur Specific [place] Urine Protein Urine Glucose (UA) Urine Ketones Urine Occult Blood Urine Nitrate Urine Bilirubin Urine Urobilinogen Ur Leukocyte Esterase Urine RBC Urine WBC Ur Squamous Epith Cells Calcium Oxalate Crystal Urine Bacteria Urine Mucus Micro UA Comment Ur Microscopic Review Urine Culture Comments Urine Opiates Screen Ur Barbiturates Screen Ur Amphetamines Screen U Benzodiazepines Scrn Urine Cocaine Screen U Cannabinoids Screen Serum Alcohol Blood Type O Positive Blood Type Recheck Required Antibody Screen Negative Laboratory Results Hemoglobin A1c 5.9 % (4.3-6.0) 11/12/18 05:57 Triglycerides 216 mg/dL (42-150) H 11/12/18 05:57 Cholesterol 211 mg/dL (120-200) H 11/12/18 05:57 LDL Cholesterol, Calc 118 mg/dL (0-99) H 11/12/18 05:57 HDL Cholesterol 50.2 mg/dL (40.0-60.0) 11/12/18 05:57 TSH 2.910 uIU/mL (0.358-3.740) 11/12/18 05:57 Free T4 0.80 ng/dL (0.76-1.46) 11/12/18 05:57 Urine Culture Comments Culture not ind 11/11/18 19:40 Summary of Procedures: None Imaging: ITS Impressions Head CT 11/12/18 12:24 CONCLUSION: 1. No acute intracranial abnormality identified. Report was called by [ Dr. Suárez] at 12:38 PM. Pending Results: CT Scan Results - Medications Number of antipsychotic medications at discharge: 0 - Discharge Care Plan Goals to Promote Your Health: * To prevent worsening of your condition and complications * To maintain your health at the optimal level Directions to Meet Your Goals: Take your medications as prescribed Follow your dietary instruction Follow activity as directed Keep your appointments as scheduled Take your immunizations and boosters as scheduled If your symptoms worsen call your PCP, if no PCP go to Urgent Care Center or Emergency Room For 02/06 questions related to your inpatient stay or results of tests pending at discharge, please contact Dr. Agustin Chow MD at Smoking is Dangerous to Your Health. Avoid second hand smoking
--- NOTE | 2018-11-12 15:11 | MB ---
cc: Dannie Rivas MD, PhD DATE: 11/12/2018 REASON FOR CONSULTATION: Stroke alert. HISTORY OF PRESENT ILLNESS: This is a 33-year-old female who was admitted to the psychiatry service for major depression. She also has a history of cataplexy. While on the psychiatry chong this morning suddenly had an episode where she lost muscle tone and decreased responsiveness and fell. A stroke alert was called. She has since regained consciousness and is talking in a stuttering fashion. She states that this is typical for her usual cataplexy. Denies any focal weakness. She states that when she has cataplexy she often has a stuttering voice, but not always but it always resolves. NEUROLOGIC EXAMINATION: VITAL SIGNS: Her blood pressure is 140/88, pulse is 104, respirations 15, temperature 99 degrees. HIGHER CORTICAL FUNCTION: She is alert and oriented. Speech is stuttering. She follows commands. There is no neglect. Cranial nerves are intact. Motor exam is normal strength and tone of all groups. There is no drift. Reflexes symmetric. IMAGING STUDIES: CT brain is normal. LABORATORY DATA: White count is 12,000, hemoglobin 12.2, hematocrit 37%, platelet count 400,000. PT 10.1, INR 1, aPTT 33.1. Sodium is 137, potassium 3.5, chloride 106, CO2 of 22.4, BUN is 13, creatinine 0.81, GFR is 80, glucose is 141, calcium 8.8, AST 9, ALT is 18. Cholesterol 211, triglycerides 216, LDL 118. IMPRESSION: I feel this is probably her cataplexy. I do not think this was a stroke. Therefore, she is not a candidate for tissue plasminogen activator or a candidate for endovascular intervention. Continue supportive care. Dannie Rivas MD, PhD KAVITHA/[email or web address] , 02:48 PM , 02:55 PM
--- NOTE | 2018-11-12 15:43 | MR ---
EXAM DATE: 11/12/2018 3:32 PM EST AGE/SEX: 33 years / Female INDICATIONS: Seizures. CLINICAL DATA: This is the patient's subsequent encounter. Patient reports that signs and symptoms h ave been present for 1 day and indicates a pain score of 0/10. MEDICAL/SURGICAL HISTORY: . Cataplexy. Tubal ligation. section. COMPARISON: [facility] – [place], [place] HEAD W/O CONTRAST, 11/12/2018. . TECHNIQUE: Multiplanar, multisequence examination of the brain was performed without contrast. FINDINGS: Cerebrum: The ventricles are normal for age. No evidence of midline shift, mass lesion, hemorrhage or acute infarction. No extraaxial fluid collections are seen. The pituitary gland and suprasellar cistern are normal in configuration. White Matter: No significant signal abnormalities are seen in the white matter. Posterior Fossa: The cerebellum and brainstem are intact. The 4th ventricle is midline. The cerebel lopontine angle is unremarkable. The cerebellar tonsils are normal in position. Diffusion Imaging: No focal areas of restricted diffusion are seen. No evidence of acute infarction . Extracranial: The visualized portions of the orbits and paranasal sinuses are unremarkable. CONCLUSION: 1. Negative MR Brain non contrast. Electronically signed by: Sameer Cobb MD Board Certified Radiologist 11/12/2018 3:41 PM EST
[2018-11-12 17:38] VITALS: RESP 18
[2018-11-12] MEDS: LOW OGESTREL PO SCH (20:54)
[2018-11-12] MEDS ORDERED: LOW OGESTREL PO SCH (21:00)
[2018-11-12] MEDS ORDERED: clonazePAM 1 MG Tablet PO ONE (22:15)
--- NOTE | 2018-11-13 08:16 | P.PNPSY ---
Subjective Chief Complaint: suicidal ideation and recurrent depression Remarks: November 13, 2018 Subjective: Patient slept through the night and feels rested today. She is asking for some "neurological pain medicine". 1 of the nurses told her of the use of such medication. Patient has not complained of "neurological pain". Because the patient has gained 50 pounds over the past 6 months it seems likely that she is having problems with sleep apnea, which certainly would contribute to her cataplexy. Sleep apnea long is known to cause rapid onset of REM. There is also the fact that the patient is no longer taking Zoloft and there seems to be a time relationship between the increase in in the catalepsy episodes and her discontinuance of Zoloft. Further complicating the picture is a litigation the patient blames for some of her depression and injuries. The patient has an appointment in [place] with neurological specialist who she is referred to by her local neurologist. Patient is currently not taking any of the usually prescribed medications such as Provigil for cataplexy. Objective: Patient's CAT scan and neurological workup were negative for the thing more than her cataplexy. The episode of cataplexy on the 2600 unit resulted in code and stroke alert. My attempted to explain to the medical staff patient was cataloged, but for safety patient was taken briefly to the medical floor. Review of Systems Review of systems: Patient has some minor complaints of knee pain and of insomnia. It is not advisable for the patient to be on medication for insomnia until sleep apnea has been ruled out. Mental Status Examination Appearance: Appropriate Consciousness: Alert Orientation: x4 Motor Activity: Normal gait Speech: Unremarkable Language: Adequate Fund of Knowledge: Adequate Attention and Concentration: Adequate Memory: Unremarkable Mood: Sad, Anxious Affect: Anxious Thought Process & Associations: Intact Thought Content: Appropriate Hallucination Type: None Suicidal Ideation: Yes Insight: Adequate Judgment: Adequate Assessment and Plan - Plan Plan: Estimated LOS: [] days November 12, 2018 Patient discharged today to the medical floor. Patient will be discharged from psychiatry and admitted to medical floor until she is deemed stable. Preference would be for the patient to be admitted to neurology since the patient would be safer there Justification for Continued Inpatient Stay: Patient needs additional 24-48 hours for observation, since her cataplexy will need [id number] inpatient observation and consideration of a sleep study.
[2018-11-13] MEDS: Ferrous Sulfate 325 MG Tablet PO SCH (08:20)
[2018-11-13] MEDS: Methocarbamol 500 MG Tablet PO SCH ×3 (08:20→18:01)
[2018-11-13] MEDS: Sertraline 50 MG Tablet PO SCH (08:22)
[2018-11-13] MEDS: OXcarbazepine 600 MG Tablet PO SCH ×2 (08:24→21:28)
--- NOTE | 2018-11-13 13:47 | ECG ---
Date Performed: 11/12/2018 Time Performed: 14:45:11 PTAGE: 33 years EKG: Sinus rhythm NORMAL ECG Since the PREVIOUS TRACING , no significant change noted PREVIOUS TRACIN04/21/2017 11.17 DOCTOR: Marv Pryor Interpretating Date/Time 11/13/2018 13:37:56
[2018-11-13] MEDS ORDERED: clonazePAM 1 MG Tablet PO ONE (21:00)
[2018-11-13] MEDS: LOW OGESTREL PO SCH (21:27)
[2018-11-14] MEDS: OXcarbazepine 600 MG Tablet PO SCH ×2 (08:58→21:33)
[2018-11-14] MEDS: Methocarbamol 500 MG Tablet PO SCH ×3 (08:59→18:11)
[2018-11-14] MEDS: Sertraline 50 MG Tablet PO SCH (08:59)
[2018-11-14] MEDS: Ferrous Sulfate 325 MG Tablet PO SCH (08:59)
--- NOTE | 2018-11-14 10:41 | P.PNPSY ---
Subjective Chief Complaint: suicidal ideation and recurrent depression Remarks: Patient seen in her room with nurse Desirae, patient is sitting up in bed she is alert and oriented calm cooperative and pleasant with good eye contact. Chart reviewed. Patient compliant medication. Patient well aware of the issues related to her cataplexy. Says the frequency of episodes have increased over the past few months she has been followed by Dr. Lomas neurologist in the community who has referred her through to [facility]. She denies suicidality or homicidality voices or visions. For now continue treatment Review of Systems All other systems reviewed negative except as stated in HPI Mental Status Examination Appearance: Appropriate Consciousness: Alert Orientation: x4 Motor Activity: Normal gait Speech: Unremarkable Language: Adequate Fund of Knowledge: Adequate Attention and Concentration: Adequate Memory: Unremarkable Mood: Sad, Anxious (Improved) Affect: Other (Good range and intensity) Thought Process & Associations: Intact Thought Content: Appropriate Hallucination Type: None Suicidal Ideation: Yes (Denies today) Insight: Adequate Judgment: Adequate Assessment and Plan - Plan Plan: Patient continues to improve now denying suicidality voices or visions. Compliant medication. For now continue treatment Justification for Continued Inpatient Stay: At this time patient with decompensated placed on a lower level of care Discharge Planning: Probable return home with family
[2018-11-14] MEDS: LOW OGESTREL PO SCH (21:02)
[2018-11-14] MEDS: LORazepam 1 MG Tablet PO PRN (21:34)
[2018-11-15] MEDS: Sertraline 50 MG Tablet PO SCH (08:32)
[2018-11-15] MEDS: Methocarbamol 500 MG Tablet PO SCH ×3 (08:32→18:09)
[2018-11-15] MEDS: OXcarbazepine 600 MG Tablet PO SCH ×2 (08:32→21:15)
[2018-11-15] MEDS: Ferrous Sulfate 325 MG Tablet PO SCH (08:32)
--- NOTE | 2018-11-15 13:42 | P.PNPSY ---
Subjective Chief Complaint: suicidal ideation and recurrent depression Remarks: Patient was seen and case discussed with nursing. Patient claims she never had suicidal ideation. She signed an ROR this morning but rescinded it after psychoeducation. She feels that therapy here and "could do this at home." She denies suicidal or homicidal ideation intent or plan. Review of Systems All other systems reviewed negative except as stated in HPI Mental Status Examination Appearance: Appropriate Consciousness: Alert Orientation: x4 Motor Activity: Normal gait Speech: Unremarkable Language: Adequate Fund of Knowledge: Adequate Attention and Concentration: Adequate Memory: Unremarkable Mood: Sad, Anxious (Improved) Affect: Other (Good range and intensity) Thought Process & Associations: Intact Thought Content: Appropriate Hallucination Type: None Suicidal Ideation: No (Denies today) Insight: Adequate Judgment: Adequate Assessment and Plan - Plan Plan: Continue current treatment plan Justification for Continued Inpatient Stay: Patient would decompensate in a less restrictive setting
[2018-11-15] MEDS: LOW OGESTREL PO SCH (21:14)
[2018-11-16 05:33] VITALS: BP 126/68; PULSE 76; TEMP 97.6; O2SAT 99
[2018-11-16] MEDS: Methocarbamol 500 MG Tablet PO SCH ×2 (09:01→12:36)
[2018-11-16] MEDS: OXcarbazepine 600 MG Tablet PO SCH (09:03)
[2018-11-16] MEDS: Ferrous Sulfate 325 MG Tablet PO SCH (09:03)
[2018-11-16] MEDS: Sertraline 50 MG Tablet PO SCH (10:16)
--- NOTE | 2018-11-16 10:52 | P.DSPSY ---
Psychiatry Discharge Summary Inpatient Psychiatric care?: Yes Advance Directives: No Mental Health Advance Directive: No Health Care Proxy: No - Admission Admission Date: November 11, 2018 22:13 Diagnosis specificity: Major depression recurrent Brief History: November 12, 2018 HPI: 33-year-old female admitted with depressed mood with some thoughts of suicide but without a plan. Patient says she came to the hospital because of her concern that she would further decompensate. The current depression has been increasing over the past couple of weeks. 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 She had a fall and has initiated litigation blaming increased in the frequency of to her episodes of cataplexy. The patient states that her cataplexy symptoms have worsened since about the end of March of this year. Her depression had been responding to Zoloft but the Zoloft was discontinued in November because she felt she no longer needed it. Discontinuance of the Zoloft has never been considered related to the possibility of an increase in her cataplexy by her primary care physician or her neurologist. Patient's current medication has not been effective with an increase in the frequency to 3-4 times a day and for 5 days a week. She claims that this relates to her level of stress. Patient has experienced weight gain of over 50 pounds since she has been inactive by her injuries to her knee in a fall she blames on a slippery walk, not her cataplexy. Today the patient had an episode of catalepsy and the [facility] team responded for stroke alert. I came to see the patient and found her alert but confused and extremely anxious with jumbling of her words and picture similar to that seen in hyperventilation syndrome. CAT scan was ordered and patient taken to medical floor. Request for neurological consult. Family history: Both of the patient's parents have diabetes. The mother has major depressive disorder and the father suffers from sleep apnea. The patient does not know if she has had a sleep study. Tobacco Use In Past 30 Days: No How Often Do You Have a Drink Containing Alcohol: Never Hospital Course: November 16, 2018 hospital course was eventful in that the patient on the first day of her hospitalization had an episode of catalepsy. She was transferred to the medical service where each EKG CAT scan and MRI were found to be negative. Patient was seen by a neurologist and referred back to the psychiatric unit. Patient has had a number of atelectatic episodes of the first few days of her return to this for a yeast bed, but none have been reported as causing injury. Over the past day the patient has had only one episode in which she felt woozy and took to bed without incident. It is anticipated patient will need to continue on the Zoloft 50 mg with possible titration upward. She has an appointment in [place] with a neurologist who will make adjustments according to her need as relates to her cataplexy. Patient understands that she should can get support with a walker that has a chair so that she may sit if she feels an episode of catalepsy about to start. Patient also understands that she must lose weight. Attempts are being made to assist the patient during her sleep to rule out the possibility of rim buildup associated with sleep apnea. 2 events have led to the patient's increasing frequency of catalepsy one is the discontinuance of her Zoloft and the other 50 pound weight gain. - Discharge Discharge Date: 11/16/18 Discharge Disposition: Home - Discharge Instructions Discharge Diet: Regular Diet, Calorie Counting Diet Activities You Can Perform: Non Weight Bearing, Sitz Bath Activities to Avoid: Prolonged Standing (Without support patient has a high likelihood of falling) - Discharge Time > 30 minutes Mental Status Examination Appearance: Appropriate Consciousness: Alert Orientation: x4 Motor Activity: Normal gait Speech: Unremarkable Language: Adequate Fund of Knowledge: Adequate Attention and Concentration: Adequate Memory: Unremarkable Mood: Sad, Anxious (Improved) Affect: Other (Good range and intensity) Thought Process & Associations: Intact Thought Content: Appropriate Hallucination Type: None Suicidal Ideation: No (Denies today) Insight: Adequate Judgment: Adequate Discharge/Advance Care Plan - Results Vital Signs: Last Vital Signs Temp 97.6 F 11/16/18 05:28 Pulse 76 11/16/18 05:28 Resp 18 11/16/18 05:28 BP 126/68 11/16/18 05:28 Pulse Ox 99 11/16/18 05:28 Lab Results: Laboratory Results Hemoglobin A1c 5.9 % (4.3-6.0) 11/12/18 05:57 Triglycerides 216 mg/dL (42-150) H 11/12/18 05:57 Cholesterol 211 mg/dL (120-200) H 11/12/18 05:57 LDL Cholesterol, Calc 118 mg/dL (0-99) H 11/12/18 05:57 HDL Cholesterol 50.2 mg/dL (40.0-60.0) 11/12/18 05:57 TSH 2.910 uIU/mL (0.358-3.740) 11/12/18 05:57 Free T4 0.80 ng/dL (0.76-1.46) 11/12/18 05:57 Urine Culture Comments Culture not ind 11/11/18 19:40 Summary of Procedures: Patient had negative EKG negative MRI and negative CAT scan Imaging: ITS Impressions Head MRI 11/12/18 00:00 CONCLUSION: 1. Negative MR Brain non contrast. Head CT 11/12/18 12:24 CONCLUSION: 1. No acute intracranial abnormality identified. Report was called by [ Dr. Suárez] at 12:38 PM. Pending Results: None - Medications Number of antipsychotic medications at discharge: 0 - Discharge Care Plan Goals to Promote Your Health: * To prevent worsening of your condition and complications * To maintain your health at the optimal level Directions to Meet Your Goals: Take your medications as prescribed Follow your dietary instruction Follow activity as directed Keep your appointments as scheduled Take your immunizations and boosters as scheduled If your symptoms worsen call your PCP, if no PCP go to Urgent Care Center or Emergency Room For 02/06 questions related to your inpatient stay or results of tests pending at discharge, please contact Dr. Agustin Chow MD at Smoking is Dangerous to Your Health. Avoid second hand smoking
== END 2018-11-16 13:00 | disposition home or self-care (01) | DRG 92 ==
LOC: NEPJ 13:13 → NEDA 22:13 → H260 22:46 → H4EA 11-12 12:51
PROVIDERS: ADMIT Psychiatry & Neurology Child & Adolescent Psychiatry; ATTEND Psychiatry & Neurology Child & Adolescent Psychiatry
CPT/HCPCS: 70450; 70551; 80048; 80053; 80061; 80307; 81001; 82550; 83036; 83735; 84439; 84443; 84484; 84703; 85025; 85384; 85610; 85730; 86850; 86900; 86901; 90791; 93005; 94003; 94657; 99285; Q0163